=== PATIENT | female | born 2000 | race African-American/Black ===

== ENCOUNTER 2021-05-23 09:18 | Outpatient (CLI) | payer OTHER, MEDICAID ==
[2021-05-23 22:24] LABS: SARS-CoV-2 PCR by NAA Not Detected (NotDetected)
== END 2021-05-23 09:19 | disposition home or self-care (01) ==
LOC: CSHLAB 09:18
PROVIDERS: ATTEND Family Medicine
DX: Z20.822 Contact with and (suspected) exposure to COVID-19 (principal)
CPT/HCPCS: U0003; U0005

== ENCOUNTER 2021-05-23 09:41 | Inpatient (IN) | payer MEDICAID, OTHER ==
[2021-05-23] MEDS ORDERED: Misoprostol 200 MCG TAB PR PRN (10:51)
[2021-05-23] MEDS ORDERED: Promethazine HCl 25 MG/ML VIAL IM PRN (10:51)
[2021-05-23] MEDS ORDERED: Methylergonovine 0.2 MG/ML VIAL IM PRN (10:51)
[2021-05-23] MEDS ORDERED: Ondansetron PF 4 MG/2 ML Vial IVP PRN (10:51)
[2021-05-23] MEDS ORDERED: hydrALAZINE 20 MG/ML VIAL SLOW IVP PRN (10:51)
[2021-05-23] MEDS ORDERED: Carboprost 250 MCG/ML AMP IM PRN (10:51)
[2021-05-23] MEDS ORDERED: Acetaminophen 500 MG TAB PO PRN (10:51)
[2021-05-23] MEDS ORDERED: Ibuprofen 800 MG TAB PO PRN (10:51)
[2021-05-23] MEDS ORDERED: Diphenoxylate HCl/Atropine Tablet PO PRN (10:51)
[2021-05-23] MEDS ORDERED: Lidocaine 1% (PF) 30 ML VIAL SC PRN (10:51)
[2021-05-23] MEDS ORDERED: HYDROcodone/Acetaminophen 5/325 mg Tablet PO PRN (10:51)
[2021-05-23] MEDS ORDERED: NS w/ Oxytocin 30 units 500 ML IV SCH ×2 (11:00)
[2021-05-23] MEDS ORDERED: NS w/ Oxytocin 30 units 500 ML IVPB SCH (11:00)
[2021-05-23 12:07] LABS: Hemoglobin 10.8 g/dL (12.0-15.5); Mean Corpuscular HGB CONC 31.6 g/dL (32.0-36.0); Mean Corpuscular Hemoglobin 28.7 pg (27.0-33.0); Mean Platelet Volume 10.2 fl (7.4-10.4); Platelet Count 275 10x3/uL (150-450); RBC Distribution Width 13.9 % (11.5-14.5); Red Blood Cell (RBC) Count 3.76 10x6/uL (3.90-5.03); White Blood Cell (WBC) Count 10.7 10x3/uL (3.5-10.5)
[2021-05-23 12:55] LABS: Hep B Surf Ag Non-Reactive S/CO (NonReactive); Syphilis Antibody Nonreactive (Nonreactive); Syphilis Antibody Index 0.05 S/CO (<1.00 Non-Reactive)
[2021-05-23 12:56] LABS: HBSAg Index 0.15 S/CO (0-0.99)
[2021-05-23] MEDS: Misoprostol 100 MCG TAB VAG SCH ×3 (13:08→23:47)
[2021-05-23] MEDS ORDERED: Penicillin G Potassium 5 MILL.UNITS in Sodium Chloride 0.9% 100 ML IVPB SCH (13:15)
[2021-05-23 14:49] VITALS: BMI 53.2
[2021-05-23] MEDS ORDERED: Penicillin G Potassium 5 MILL.UNITS VIAL ONE (19:54)
[2021-05-23 23:36] LABS: SARS-CoV-2 NAA Rapid Test Not Detected (NotDetected)
[2021-05-23] MEDS: Penicillin G 2.5 MILL.units 2.5 MILL.UNITS in Premix Bag 1 BAG IVPB SCH (23:59)
[2021-05-24] MEDS: Butorphanol Tartrate 1 MG/ML VIAL SLOW IVP PRN ×4 (00:41→21:24)
[2021-05-24] MEDS ORDERED: Terbutaline Sulfate 1 MG/ML VIAL ONE (02:23)
[2021-05-24] MEDS: Penicillin G 2.5 MILL.units 2.5 MILL.UNITS in Premix Bag 1 BAG IVPB SCH ×3 (04:20→20:28)
[2021-05-24] MEDS: Lactated Ringer's 1,000 ML IV SCH (04:22)
[2021-05-24] MEDS ORDERED: Butorphanol Tartrate 1 MG/ML VIAL ONE (07:13)
[2021-05-24] MEDS: Misoprostol 100 MCG TAB VAG SCH (20:28)
[2021-05-25] MEDS: Penicillin G 2.5 MILL.units 2.5 MILL.UNITS in Premix Bag 1 BAG IVPB SCH ×4 (00:49→20:16)
[2021-05-25] MEDS ORDERED: ePHEDrine Sulfate 50 MG/10 ML VIAL ONE (14:36)
[2021-05-25] MEDS ORDERED: Morphine PF 10 MG/10 ML VIAL ONE (14:36)
[2021-05-25] MEDS ORDERED: Oxytocin 10 UNITS/ML VIAL ONE (14:38)
[2021-05-25] MEDS ORDERED: Fentanyl 100 MCG/2 ML VIAL ONE (14:38)
[2021-05-25] MEDS ORDERED: Phenylephrine 10 MG/ML VIAL ONE (14:38)
[2021-05-25] MEDS ORDERED: PHENYLEPHRINE-NS 100 MCG/ML 10 ML SYRINGE ONE (14:38)
[2021-05-25] MEDS ORDERED: ceFAZolin 2 GM/Dextrose 50 ML IVPB ONE (14:47)
[2021-05-25] MEDS ORDERED: CEFAZOLIN 1 GM VIAL ONE (14:48)
[2021-05-25] MEDS ORDERED: Methylergonovine 0.2 MG/ML VIAL ONE (16:11)
[2021-05-25] MEDS ORDERED: Carboprost 250 MCG/ML AMP ONE (16:15)
[2021-05-25 16:27] LABS: pH (Cord, venous) 7.221 (7.250-7.350)
[2021-05-25] MEDS ORDERED: Ketorolac Tromethamine 30 MG/ML VIAL ONE (16:34)
[2021-05-25] MEDS ORDERED: Ondansetron PF 4 MG/2 ML Vial ONE (16:34)
[2021-05-25] MEDS ORDERED: Meperidine HCl/PF 25 MG/ML VIAL IM PRN (20:04)
[2021-05-25] MEDS ORDERED: Ondansetron PF 4 MG/2 ML Vial IVP PRN (20:04)
[2021-05-25] MEDS ORDERED: Bisacodyl 10 MG SUPP PR PRN (20:04)
[2021-05-25] MEDS ORDERED: Lanolin Ointment 7 GM TUBE TOP PRN (20:04)
[2021-05-25] MEDS ORDERED: diphenhydrAMINE 25 MG CAP PO PRN (20:04)
[2021-05-25] MEDS ORDERED: Simethicone Chewable 80 MG TAB PO PRN (20:04)
[2021-05-25] MEDS ORDERED: Promethazine HCl 25 MG/ML VIAL IM PRN (20:04)
[2021-05-25] MEDS ORDERED: Boostrix 0.5 ML (Tdap) VIAL IM ONE (20:04)
[2021-05-25] MEDS ORDERED: hydrALAZINE 20 MG/ML VIAL SLOW IVP PRN (20:04)
[2021-05-25] MEDS: Lactated Ringer's 1,000 ML IV SCH (20:13)
[2021-05-25] MEDS: Misoprostol 100 MCG TAB VAG SCH ×3 (20:13→20:15)
[2021-05-25] MEDS: Ferrous Sulfate 325 MG TAB PO SCH (23:28)
[2021-05-25] MEDS: Docusate 100 MG CAP PO SCH (23:28)
[2021-05-25] MEDS: Ketorolac Tromethamine 30 MG/ML VIAL IVP SCH (23:45)
[2021-05-26 05:11] LABS: Hemoglobin 8.5 g/dL (12.0-15.5); Mean Corpuscular HGB CONC 32.1 g/dL (32.0-36.0); Mean Corpuscular Volume 90.4 fl (81.6-98.3); Mean Platelet Volume 10.3 fl (7.4-10.4); Platelet Count 273 10x3/uL (150-450); RBC Distribution Width 14.2 % (11.5-14.5); Red Blood Cell (RBC) Count 2.93 10x6/uL (3.90-5.03); White Blood Cell (WBC) Count 13.9 10x3/uL (3.5-10.5)
[2021-05-26] MEDS: Ketorolac Tromethamine 30 MG/ML VIAL IVP SCH ×2 (05:36→13:09)
[2021-05-26] MEDS: Prenatal Vitamin 1 TAB PO SCH (09:24)
[2021-05-26] MEDS: Ferrous Sulfate 325 MG TAB PO SCH ×2 (09:24→21:22)
[2021-05-26] MEDS: Docusate 100 MG CAP PO SCH ×2 (09:24→21:22)
[2021-05-26] MEDS: HYDROcodone/Acetaminophen 5/325 mg Tablet PO PRN ×2 (13:47→17:43)
[2021-05-26] MEDS: Ibuprofen 800 MG TAB PO SCH (21:22)
[2021-05-27] MEDS: Ibuprofen 800 MG TAB PO SCH ×2 (05:28→15:15)
[2021-05-27] MEDS: HYDROcodone/Acetaminophen 5/325 mg Tablet PO PRN ×3 (05:30→17:42)
[2021-05-27] MEDS: Ferrous Sulfate 325 MG TAB PO SCH ×2 (09:06→20:02)
[2021-05-27] MEDS: Docusate 100 MG CAP PO SCH ×2 (09:07→20:02)
[2021-05-27] MEDS: Prenatal Vitamin 1 TAB PO SCH (09:07)
[2021-05-27] MEDS: Lactated Ringer's 1,000 ML IV SCH (17:38)
[2021-05-27] MEDS: Misoprostol 100 MCG TAB VAG SCH (17:38)
[2021-05-27 21:20] VITALS: BP 116/55; TEMP 97.6
== END 2021-05-27 21:10 | disposition home or self-care (01) | DRG 788 ==
LOC: CSHLD/OP 09:41 → CSHLD 12:58 → CSHPP 05-25 19:55
PROVIDERS: ADMIT Family Medicine; ATTEND Family Medicine
PROC: 10D00Z1 Extraction of Products of Conception, Low, Open Approach (ICD-10-PCS; principal; 2021-05-25)
DX: O48.0 Post-term pregnancy (principal); O99.214 Obesity complicating childbirth; Z3A.40 40 weeks gestation of pregnancy; Z37.0 Single live birth; O99.824 Streptococcus B carrier state complicating childbirth; O61.8 Other failed induction of labor; E66.01 Morbid (severe) obesity due to excess calories; O64.0XX0 Obstructed labor due to incomplete rotation of fetal head, not applicable or unspecified; Z20.822 Contact with and (suspected) exposure to COVID-19
CPT/HCPCS: 36415; 51702; 82805; 85027; 86780; 86850; 86900; 86901; 87340; J0595; J1885; J2210; J2274; J2370; J2405; J2540; J2590; J3010; J3490; J7120; U0002; U0003; U0005